=== PATIENT | male | born 1980 | race Caucasian/White ===

== ENCOUNTER 2021-10-14 08:32 | Emergency (ER) | payer OTHER ==
[2021-10-14] MEDS ORDERED: Lidocaine 1% 5 ML VIAL INJECT ONE (08:49)
[2021-10-14] MEDS ORDERED: Diphtheria,Pertussis(Acell),Tetanus Vaccine 0.5 ML Syringe IM ONE (08:51)
[2021-10-14] MEDS ORDERED: Bacitracin Oint 1 GM U/D Packet TOP ONE (09:49)
== END 2021-10-14 09:54 | disposition home or self-care (01) ==
LOC: MW.ED 08:32
DX: S61.012A Laceration without foreign body of left thumb without damage to nail, initial encounter (principal); Z23 Encounter for immunization; W27.0XXA Contact with workbench tool, initial encounter; Y92.009 Unspecified place in unspecified non-institutional (private) residence as the place of occurrence of the external cause
CPT/HCPCS: 12002; 90471; 90715; 99282-25